=== PATIENT | male | born 1970 | race Caucasian/White ===

== ENCOUNTER 2017-10-06 13:08 | Observation (INO) | payer BC ==
[~2017-10-06] VITALS: Ht 190.5 cm; Wt 103.6 kg
[~2017-10-06 13:08] MED LIST: ATOR40TA69 PO; CEPH500T7 PO; CLOP75TA PO; DIA5 PO; HYDR-4309 PO; KET10 PO; LISI5TAB25 PO; METH-543 PO; METO25TA23 PO; PER PO; SIMV-54 PO; SPIR25TA78 PO; WARF2.5T11 PO; [UNRECOGNIZED DRUG - CODE] PO
--- NOTE | 2017-10-06 13:14 | ER Report ---
History and Physical Time Seen By MD: 13:30 (SOSA RAMSEY MD) HPI/ROS chief concern: vomiting, dehydration HPI: 47 y/o male presents with concern of dehydration related to "stomach flu". Reports onset of sinus and upper respiratory symptoms x one week, with onset of vomiting x4 days. Reports he has been unable to take medications, including coumadin, for two days due to vomiting. He has also fainted and fallen three times, hitting his head once. Denies vision changes, headache. Reports chronic diarrhea x3 years, believes related to his medications; denies any hematochezia , melena, or mucus. Review of Systems: General: Reports chills, sweats. Denies headache. HENT: Reports sinus pressure, bloody nasal discharge. Respiratory: Reports cough. Denies shortness of breath, dyspnea. CV: Denies chest pain, palpitations. GI: Reports nausea, vomiting, diarrhea. Denies abdominal pain, hematemesis, hematochezia, melena, mucus. Neuro: Reports intermittent lightheadedness. Denies vision/hearing changes. (LAKIA BOTELLO) Allergies: Coded Allergies: No Known Drug Allergies (Unverified , 03/31/15) Home Meds Active Scripts Enoxaparin Sodium (ENOXAPARIN SODIUM) 150 Mg/1 Ml Disp.syrin, 150 MG SQ HS, #3 1 Refill Prov:CHERYL LYLE MD 10/07/17 Reported Medications Warfarin Sodium (COUMADIN) 10 Mg Tablet, 10 MG PO tuesday, tuesday, tuesday10/06/17 Warfarin Sodium (WARFARIN SODIUM) 5 Mg Tablet, 7.5 MG PO, TAB tuesday, , tuesday, tuesday10/06/17 Trazodone Hcl (TRAZODONE HCL) 150 Mg Tablet, 150 MG PO QHS 10/06/17 Atorvastatin Calcium (LIPITOR) 40 Mg Tablet, 2 TAB PO QDAY, TAB 10/06/17 Spironolactone (SPIRONOLACTONE) 25 Mg Tablet, 25 MG PO QDAY 08/01/15 Metoprolol Succinate (METOPROLOL SUCCINATE) 25 Mg Tab.er.24h, 1 TAB PO QDAY, TAB 03/31/15 Lisinopril (LISINOPRIL) 5 Mg Tablet, 5 MG PO DAILY, TAB 03/31/15 Clopidogrel Bisulfate (CLOPIDOGREL) 75 Mg Tablet, 1 TAB PO QDAY, TAB 03/31/15 Discontinued Reported Medications Diazepam (VALIUM) 5 Mg Tablet, 5 MG PO PRN, #5 TAB 10/06/17 Warfarin Sodium (WARFARIN SODIUM) 5 Mg Tablet, 10 MG PO, TAB 10/06/17 Cefuroxime Axetil (CEFUROXIME) 500 Mg Tablet, 500 MG PO BID, #20 TAB 10/06/17 Warfarin Sodium (WARFARIN SODIUM) 2.5 Mg Tablet, 7.5 MG PO QDAY 03/31/15 Discontinued Scripts Promethazine/Phenyleph/Codeine (Promethazine Vc-Codeine Syrup) 6.25 Mg-5 Mg-10 Mg/5 Ml Syrup, 5 ML PO Q4-6H Y for cough, #120 ML 0 Refills Prov:SOSA RAMSEY MD 10/06/17 Amoxicillin/Pot Clav 875-125 Mg Tab (AUGMENTIN 875-125 TABLET) 1 Each Tablet, 1 TAB PO Q12H for 10 Days, #20 TAB 0 Refills Prov:SOSA RAMSEY MD 10/06/17 Ondansetron (ZOFRAN ODT) 4 Mg Tab.rapdis, 4 MG PO Q8H for Nausea, #20 TAB.RONI 0 Refills Prov:SOSA RAMSEY MD 10/06/17 Enoxaparin Sodium (LOVENOX) 100 Mg/1 Ml Disp.syrin, 100 MG SQ Q12H, #14 SYR 0 Refills Prov:SOSA RAMSEY MD 10/06/17 Diazepam (VALIUM) 5 Mg Tablet, 5 MG PO 2-3XD, #15 TAB Prov:GISELLE COE MD 11/24/16 Cephalexin 500 Mg Tab (KEFLEX 500 MG TAB) 500 Mg Tablet, 500 MG PO Q6H, #28 TAB 0 Refills TAKE ONE TABLET BY MOUTH EVERY SIX HOURS Prov:GISELLE COE MD 11/24/16 Hydrocodone Bit/Acetaminophen (NORCO 5-325 TABLET) 1 Each Tablet, 1 EACH PO Q4- 6H Y for BACK PAIN, #30 TAB Prov:GISELLE COE MD 11/24/16 Past Medical/Surgical History Hypertension, history of prior TX with stenting on Coumadin therapy (SOSA RAMSEY MD) Hx Smoking: No Smoking Status: Never Smoker Hx Substance Use Disorder: No Hx Alcohol Use: Yes (LAKIA BOTELLO) Constitutional Vital Sign - Last 24 Hours 10/06/17 10/06/17 10/06/17 10/06/17 13:18 13:30 14:00 14:30 Temp 97.4 Pulse 86 74 Resp 16 B/P (MAP) 114/90 114/88 (97) 118/79 (92) 127/74 (91) Pulse Ox 91 O2 Delivery Room Air 10/06/17 10/06/17 10/06/17 10/06/17 15:00 15:30 16:00 16:30 Pulse 78 B/P (MAP) 114/78 (90) 123/90 (101) 115/69 (84) 110/73 (85) Pulse Ox 83 Intake and Output 10/06/17 10/06/17 10/07/17 15:00 23:00 07:00 Intake Total 1000 ml Balance 1000 ml Physical Exam Physical Exam: General: Alert, oriented x3; answers questions appropriately. Ill-appearing. HENT: TMs pearly leonard with no erythema to ear canals. Posterior pharynx mildly erythematous, tonsils 1+ bilaterally with no exudates. No lymphadenopathy. Respiratory: Clear to auscultation bilaterally. Normal respiratory effort. CV: regular rate and rhythm, no peripheral edema. GI: Abdomen soft. Bowel sounds normoactive. Scattered tympany and dullness to percussion. Nontender to palpation all quadrants. Neuro: PERRLA After obtaining thorough HPI, ROS, and physical exam, the following differentials were considered but not limited to: TX, hypovolemic shock, dehydration, viral gastroenteritis, seasonal influenza. (LAKIA BOTELLO) Constitutional Vital Sign - Last 24 Hours 10/06/17 13:18 Temp 97.4 Pulse 86 Resp 16 B/P (MAP) 114/90 Pulse Ox 91 O2 Delivery Room Air (SOSA RAMSEY MD) Constitutional Vital Sign - Last 24 Hours 10/06/17 10/06/17 10/06/17 10/06/17 13:18 13:30 14:00 14:30 Temp 97.4 Pulse 86 74 Resp 16 B/P (MAP) 114/90 114/88 (97) 118/79 (92) 127/74 (91) Pulse Ox 91 O2 Delivery Room Air 10/06/17 15:00 B/P (MAP) 114/78 (90) (HUSSEIN,ORLY Hernandez DO) Medical Decision Making Data Points Result Diagram: 10/06/17 1321 10/06/17 1321 Laboratory Hematology Test 10/06/17 13:21 10/06/17 14:05 Red Blood Count 5.35 M/uL (4.00-5.60) Mean Corpuscular Volume 87.4 fL (80.0-96.0) Mean Corpuscular Hemoglobin 30.2 pg (26.0-33.0) Mean Corpuscular Hemoglobin Concent 34.6 g/dL (32.0-36.0) Red Cell Distribution Width 13.9 % (11.5-14.5) Mean Platelet Volume 8.3 fL (7.2-11.1) Neutrophils (%) (Auto) 61.9 % (39.4-72.5) Lymphocytes (%) (Auto) 24.0 % (17.6-49.6) Monocytes (%) (Auto) 9.6 % (4.1-12.4) Eosinophils (%) (Auto) 4.1 % (0.4-6.7) Basophils (%) (Auto) 0.4 % (0.3-1.4) Nucleated RBC Relative Count (auto) 0.0 /100WBC Neutrophils # (Auto) 4.3 K/uL (2.0-7.4) Lymphocytes # (Auto) 1.7 K/uL (1.3-3.6) Monocytes # (Auto) 0.7 K/uL (0.3-1.0) Eosinophils # (Auto) 0.3 K/uL (0.0-0.5) Basophils # (Auto) 0.0 K/uL (0.0-0.1) Nucleated RBC Absolute Count (auto) 0.00 K/uL Prothrombin Time 13.7 seconds (12.0-14.4) Prothromb Time International Ratio 1.05 Activated Partial Thromboplast Time 30 seconds (23-35) Sodium Level 138 mmol/L (137-145) Potassium Level 3.8 mmol/L (3.5-5.0) Chloride Level 100 mmol/L (98-107) Carbon Dioxide Level 24 mmol/L (22-30) Blood Urea Nitrogen 15 mg/dl (9-21) Creatinine 1.10 mg/dl (0.66-1.25) Glomerular Filtration Rate Calc > 60.0 Random Glucose 101 mg/dl (75-110) Calcium Level 9.0 mg/dl (8.4-10.2) Total Bilirubin 0.5 mg/dl (0.2-1.3) Aspartate Amino Transf (AST/SGOT) 65 U/L (0-35) Alanine Aminotransferase (ALT/SGPT) 87 U/L (0-56) Alkaline Phosphatase 58 U/L (0-126) Troponin I < 0.012 ng/ml B-Type Natriuretic Peptide 19 pg/ml (0-100) Total Protein 7.7 gm/dl (6.3-8.2) Albumin 4.2 g/dl (3.5-5.0) Influenza Virus Type A (PCR) Negative (NEGATIVE) Influenza Virus Type B (PCR) Positive (NEGATIVE) Chemistry Test 10/06/17 13:21 10/06/17 14:05 White Blood Count 7.0 k/uL (4.5-11.0) Red Blood Count 5.35 M/uL (4.00-5.60) Hemoglobin 16.2 g/dL (14.0-18.0) Hematocrit 46.8 % (42.0-52.0) Mean Corpuscular Volume 87.4 fL (80.0-96.0) Mean Corpuscular Hemoglobin 30.2 pg (26.0-33.0) Mean Corpuscular Hemoglobin Concent 34.6 g/dL (32.0-36.0) Red Cell Distribution Width 13.9 % (11.5-14.5) Platelet Count 240 K/uL (150-450) Mean Platelet Volume 8.3 fL (7.2-11.1) Neutrophils (%) (Auto) 61.9 % (39.4-72.5) Lymphocytes (%) (Auto) 24.0 % (17.6-49.6) Monocytes (%) (Auto) 9.6 % (4.1-12.4) Eosinophils (%) (Auto) 4.1 % (0.4-6.7) Basophils (%) (Auto) 0.4 % (0.3-1.4) Nucleated RBC Relative Count (auto) 0.0 /100WBC Neutrophils # (Auto) 4.3 K/uL (2.0-7.4) Lymphocytes # (Auto) 1.7 K/uL (1.3-3.6) Monocytes # (Auto) 0.7 K/uL (0.3-1.0) Eosinophils # (Auto) 0.3 K/uL (0.0-0.5) Basophils # (Auto) 0.0 K/uL (0.0-0.1) Nucleated RBC Absolute Count (auto) 0.00 K/uL Prothrombin Time 13.7 seconds (12.0-14.4) Prothromb Time International Ratio 1.05 Activated Partial Thromboplast Time 30 seconds (23-35) Glomerular Filtration Rate Calc > 60.0 Calcium Level 9.0 mg/dl (8.4-10.2) Total Bilirubin 0.5 mg/dl (0.2-1.3) Aspartate Amino Transf (AST/SGOT) 65 U/L (0-35) Alanine Aminotransferase (ALT/SGPT) 87 U/L (0-56) Alkaline Phosphatase 58 U/L (0-126) Troponin I < 0.012 ng/ml B-Type Natriuretic Peptide 19 pg/ml (0-100) Total Protein 7.7 gm/dl (6.3-8.2) Albumin 4.2 g/dl (3.5-5.0) Influenza Virus Type A (PCR) Negative (NEGATIVE) Influenza Virus Type B (PCR) Positive (NEGATIVE) Coagulation Test 10/06/17 13:21 Prothrombin Time 13.7 seconds Prothromb Time International Ratio 1.05 Activated Partial Thromboplast Time 30 seconds (LAKIA BOTELLOP) Laboratory Hematology Test 10/06/17 13:21 10/06/17 14:05 Red Blood Count 5.35 M/uL (4.00-5.60) Mean Corpuscular Volume 87.4 fL (80.0-96.0) Mean Corpuscular Hemoglobin 30.2 pg (26.0-33.0) Mean Corpuscular Hemoglobin Concent 34.6 g/dL (32.0-36.0) Red Cell Distribution Width 13.9 % (11.5-14.5) Mean Platelet Volume 8.3 fL (7.2-11.1) Neutrophils (%) (Auto) 61.9 % (39.4-72.5) Lymphocytes (%) (Auto) 24.0 % (17.6-49.6) Monocytes (%) (Auto) 9.6 % (4.1-12.4) Eosinophils (%) (Auto) 4.1 % (0.4-6.7) Basophils (%) (Auto) 0.4 % (0.3-1.4) Nucleated RBC Relative Count (auto) 0.0 /100WBC Neutrophils # (Auto) 4.3 K/uL (2.0-7.4) Lymphocytes # (Auto) 1.7 K/uL (1.3-3.6) Monocytes # (Auto) 0.7 K/uL (0.3-1.0) Eosinophils # (Auto) 0.3 K/uL (0.0-0.5) Basophils # (Auto) 0.0 K/uL (0.0-0.1) Nucleated RBC Absolute Count (auto) 0.00 K/uL Prothrombin Time 13.7 seconds (12.0-14.4) Prothromb Time International Ratio 1.05 Activated Partial Thromboplast Time 30 seconds (23-35) Sodium Level 138 mmol/L (137-145) Potassium Level 3.8 mmol/L (3.5-5.0) Chloride Level 100 mmol/L (98-107) Carbon Dioxide Level 24 mmol/L (22-30) Blood Urea Nitrogen 15 mg/dl (9-21) Creatinine 1.10 mg/dl (0.66-1.25) Glomerular Filtration Rate Calc > 60.0 Random Glucose 101 mg/dl (75-110) Calcium Level 9.0 mg/dl (8.4-10.2) Total Bilirubin 0.5 mg/dl (0.2-1.3) Aspartate Amino Transf (AST/SGOT) 65 U/L (0-35) Alanine Aminotransferase (ALT/SGPT) 87 U/L (0-56) Alkaline Phosphatase 58 U/L (0-126) Troponin I < 0.012 ng/ml B-Type Natriuretic Peptide 19 pg/ml (0-100) Total Protein 7.7 gm/dl (6.3-8.2) Albumin 4.2 g/dl (3.5-5.0) Influenza Virus Type A (PCR) Negative (NEGATIVE) Influenza Virus Type B (PCR) Positive (NEGATIVE) Chemistry Test 10/06/17 13:21 10/06/17 14:05 White Blood Count 7.0 k/uL (4.5-11.0) Red Blood Count 5.35 M/uL (4.00-5.60) Hemoglobin 16.2 g/dL (14.0-18.0) Hematocrit 46.8 % (42.0-52.0) Mean Corpuscular Volume 87.4 fL (80.0-96.0) Mean Corpuscular Hemoglobin 30.2 pg (26.0-33.0) Mean Corpuscular Hemoglobin Concent 34.6 g/dL (32.0-36.0) Red Cell Distribution Width 13.9 % (11.5-14.5) Platelet Count 240 K/uL (150-450) Mean Platelet Volume 8.3 fL (7.2-11.1) Neutrophils (%) (Auto) 61.9 % (39.4-72.5) Lymphocytes (%) (Auto) 24.0 % (17.6-49.6) Monocytes (%) (Auto) 9.6 % (4.1-12.4) Eosinophils (%) (Auto) 4.1 % (0.4-6.7) Basophils (%) (Auto) 0.4 % (0.3-1.4) Nucleated RBC Relative Count (auto) 0.0 /100WBC Neutrophils # (Auto) 4.3 K/uL (2.0-7.4) Lymphocytes # (Auto) 1.7 K/uL (1.3-3.6) Monocytes # (Auto) 0.7 K/uL (0.3-1.0) Eosinophils # (Auto) 0.3 K/uL (0.0-0.5) Basophils # (Auto) 0.0 K/uL (0.0-0.1) Nucleated RBC Absolute Count (auto) 0.00 K/uL Prothrombin Time 13.7 seconds (12.0-14.4) Prothromb Time International Ratio 1.05 Activated Partial Thromboplast Time 30 seconds (23-35) Glomerular Filtration Rate Calc > 60.0 Calcium Level 9.0 mg/dl (8.4-10.2) Total Bilirubin 0.5 mg/dl (0.2-1.3) Aspartate Amino Transf (AST/SGOT) 65 U/L (0-35) Alanine Aminotransferase (ALT/SGPT) 87 U/L (0-56) Alkaline Phosphatase 58 U/L (0-126) Troponin I < 0.012 ng/ml B-Type Natriuretic Peptide 19 pg/ml (0-100) Total Protein 7.7 gm/dl (6.3-8.2) Albumin 4.2 g/dl (3.5-5.0) Influenza Virus Type A (PCR) Negative (NEGATIVE) Influenza Virus Type B (PCR) Positive (NEGATIVE) Coagulation Test 10/06/17 13:21 Prothrombin Time 13.7 seconds Prothromb Time International Ratio 1.05 Activated Partial Thromboplast Time 30 seconds (SOSA RAMSEY MD) Laboratory Hematology Test 10/06/17 13:21 10/06/17 14:05 Red Blood Count 5.35 M/uL (4.00-5.60) Mean Corpuscular Volume 87.4 fL (80.0-96.0) Mean Corpuscular Hemoglobin 30.2 pg (26.0-33.0) Mean Corpuscular Hemoglobin Concent 34.6 g/dL (32.0-36.0) Red Cell Distribution Width 13.9 % (11.5-14.5) Mean Platelet Volume 8.3 fL (7.2-11.1) Neutrophils (%) (Auto) 61.9 % (39.4-72.5) Lymphocytes (%) (Auto) 24.0 % (17.6-49.6) Monocytes (%) (Auto) 9.6 % (4.1-12.4) Eosinophils (%) (Auto) 4.1 % (0.4-6.7) Basophils (%) (Auto) 0.4 % (0.3-1.4) Nucleated RBC Relative Count (auto) 0.0 /100WBC Neutrophils # (Auto) 4.3 K/uL (2.0-7.4) Lymphocytes # (Auto) 1.7 K/uL (1.3-3.6) Monocytes # (Auto) 0.7 K/uL (0.3-1.0) Eosinophils # (Auto) 0.3 K/uL (0.0-0.5) Basophils # (Auto) 0.0 K/uL (0.0-0.1) Nucleated RBC Absolute Count (auto) 0.00 K/uL Prothrombin Time 13.7 seconds (12.0-14.4) Prothromb Time International Ratio 1.05 Activated Partial Thromboplast Time 30 seconds (23-35) Sodium Level 138 mmol/L (137-145) Potassium Level 3.8 mmol/L (3.5-5.0) Chloride Level 100 mmol/L (98-107) Carbon Dioxide Level 24 mmol/L (22-30) Blood Urea Nitrogen 15 mg/dl (9-21) Creatinine 1.10 mg/dl (0.66-1.25) Glomerular Filtration Rate Calc > 60.0 Random Glucose 101 mg/dl (75-110) Calcium Level 9.0 mg/dl (8.4-10.2) Total Bilirubin 0.5 mg/dl (0.2-1.3) Aspartate Amino Transf (AST/SGOT) 65 U/L (0-35) Alanine Aminotransferase (ALT/SGPT) 87 U/L (0-56) Alkaline Phosphatase 58 U/L (0-126) Troponin I < 0.012 ng/ml B-Type Natriuretic Peptide 19 pg/ml (0-100) Total Protein 7.7 gm/dl (6.3-8.2) Albumin 4.2 g/dl (3.5-5.0) Influenza Virus Type A (PCR) Negative (NEGATIVE) Influenza Virus Type B (PCR) Positive (NEGATIVE) Chemistry Test 10/06/17 13:21 10/06/17 14:05 White Blood Count 7.0 k/uL (4.5-11.0) Red Blood Count 5.35 M/uL (4.00-5.60) Hemoglobin 16.2 g/dL (14.0-18.0) Hematocrit 46.8 % (42.0-52.0) Mean Corpuscular Volume 87.4 fL (80.0-96.0) Mean Corpuscular Hemoglobin 30.2 pg (26.0-33.0) Mean Corpuscular Hemoglobin Concent 34.6 g/dL (32.0-36.0) Red Cell Distribution Width 13.9 % (11.5-14.5) Platelet Count 240 K/uL (150-450) Mean Platelet Volume 8.3 fL (7.2-11.1) Neutrophils (%) (Auto) 61.9 % (39.4-72.5) Lymphocytes (%) (Auto) 24.0 % (17.6-49.6) Monocytes (%) (Auto) 9.6 % (4.1-12.4) Eosinophils (%) (Auto) 4.1 % (0.4-6.7) Basophils (%) (Auto) 0.4 % (0.3-1.4) Nucleated RBC Relative Count (auto) 0.0 /100WBC Neutrophils # (Auto) 4.3 K/uL (2.0-7.4) Lymphocytes # (Auto) 1.7 K/uL (1.3-3.6) Monocytes # (Auto) 0.7 K/uL (0.3-1.0) Eosinophils # (Auto) 0.3 K/uL (0.0-0.5) Basophils # (Auto) 0.0 K/uL (0.0-0.1) Nucleated RBC Absolute Count (auto) 0.00 K/uL Prothrombin Time 13.7 seconds (12.0-14.4) Prothromb Time International Ratio 1.05 Activated Partial Thromboplast Time 30 seconds (23-35) Glomerular Filtration Rate Calc > 60.0 Calcium Level 9.0 mg/dl (8.4-10.2) Total Bilirubin 0.5 mg/dl (0.2-1.3) Aspartate Amino Transf (AST/SGOT) 65 U/L (0-35) Alanine Aminotransferase (ALT/SGPT) 87 U/L (0-56) Alkaline Phosphatase 58 U/L (0-126) Troponin I < 0.012 ng/ml B-Type Natriuretic Peptide 19 pg/ml (0-100) Total Protein 7.7 gm/dl (6.3-8.2) Albumin 4.2 g/dl (3.5-5.0) Influenza Virus Type A (PCR) Negative (NEGATIVE) Influenza Virus Type B (PCR) Positive (NEGATIVE) Coagulation Test 10/06/17 13:21 Prothrombin Time 13.7 seconds Prothromb Time International Ratio 1.05 Activated Partial Thromboplast Time 30 seconds (LAURORA,ORLY V DO) EKG/Imaging EKG Interpretation EKG shows normal sinus rhythm with ventricular rate of 67 bpm. The patient has Q waves in the septal leads. EKG was compared to an EKG from March 2015 and it essentially is unchanged. Monitor Interpretation: Normal Sinus Rhythm (SOSA RAMSEY MD) ED Course/Re-evaluation ED Course 10/06/2017 2:05:02 pm patient seen along with Paty Botello; briefly this is a 47-year-old male with approximately 1 week of upper respiratory symptoms including sinus pressure and sinus headache along with cough and postnasal drip. He has a history of chronic diarrhea ever since his heart attack. This is felt to be medication related. He is developed intractable vomiting since Tuesday. No recent travel history no recent antibiotic use. Patient denies any chest pain or shortness of breath but does have a nonproductive cough. General/Constitutional: Patient is awake, alert, nontoxic and in no acute respiratory distress. Head: Normocephalic and atraumatic. Eyes: Conjunctival clear, Pupils are equal and reactive to light. Extraocular muscles are intact and symmetrical. Sclera are clear and anicteric. Ears:External canals are clear. Tympanic membranes are clear with normal landmarks and light reflex. She with tenderness to the frontal and maxillary sinuses bilaterally with percussion Nares: No rhinorrhea or bleeding. Turbinates are pink and moist. Oropharyngeal: Mucous membranes are moist. There is no pharyngeal erythema or exudate. There are no palatal petechiae. Uvula is midline and symmetrical. Neck: Supple, no adenopathy. Cardiovascular: Heart is regular rate and rhythm without audible murmurs, rubs or gallops. Pulmonary: Lungs are clear to auscultation bilaterally. There are no wheezes, rales, or rhonchi. Chest rise is symmetrical Abdomen: Soft, nontender, no guarding or peritoneal signs. Extremities: No gross deformities, No peripheral cyanosis. Able to move all 4 extremities. Neuro: Alert and oriented X3, Skin: No rashes, skin is warm dry and well perfused. 10/06/2017 3:24:11 pm patient with intractable vomiting will discuss case with the hospitalist. It did speak with Dr. Lyle who agreed to come and evaluate the patient for possible observation admission Re-evaluation 10/06/2017 3:10:[address] scan is positive for pain sinusitis. Plan will be treatment for 10 days of Augmentin patient positive for influenza B however is out of the window for Tamiflu treatment at this time. The patient is able to tolerate orals we'll sent home with Zoan will also send home on a week's worth of Lovenox shots and a prescription to have his INR redrawn on October 10. We will have him continue his Coumadin regime which is 10 mg Tuesday and Tuesday and 7.5 mg on all the other days. If he is unable to tolerate by mouth fluids we will discuss the case with the on-call hospitalist for possible admission. Decision to Disposition Date: Oct 07, 2017 Decision to Disposition Time: 17:00 (SOSA RAMSEY MD) ED Course 10/06/2017 4:36:51 pm Pt unable to go home due to vomited up his coumadin. hospitalist will admit. Decision to Disposition Date: Oct 06, 2017 Decision to Disposition Time: 16:36 (ORLY SAVAGE DO) Depart Departure Latest Vital Signs Vital Signs Date Time Temp Pulse Resp B/P (MAP) Pulse Ox O2 Delivery O2 Flow Rate FiO2 10/06/17 16:30 78 110/73 (85) 83 10/06/17 13:18 97.4 16 Room Air (LAKIA BOTELLO) Latest Vital Signs Vital Signs Date Time Temp Pulse Resp B/P (MAP) Pulse Ox O2 Delivery O2 Flow Rate FiO2 10/06/17 13:18 97.4 86 16 114/90 91 Room Air (SOSA RAMSEY MD) Latest Vital Signs Vital Signs Date Time Temp Pulse Resp B/P (MAP) Pulse Ox O2 Delivery O2 Flow Rate FiO2 10/06/17 15:00 114/78 (90) 10/06/17 14:00 74 10/06/17 13:18 97.4 16 91 Room Air (ORLY SAVAGE DO) Impression: Primary Impression: Sinusitis Additional Impressions: Influenza Vomiting Condition: Condition Unchanged Disposition: Admitted from ER Referrals: AGBRIELLE PHILLIPS (PCP) Follow-up on Tuesday to have your INR rechecked. New Scripts Enoxaparin Sodium (ENOXAPARIN SODIUM) 150 Mg/1 Ml Disp.syrin 150 MG SQ HS, #3 1 Refill Prov: CHERYL LYLE MD 10/07/17 Patient Instructions: Influenza (DC), Sinusitis (ED) Additional Instructions: Continue to take your Coumadin as prescribed; follow-up on Tuesday for a repeat INR test. Take your Lovenox injections, 100 mg every 12 hours, your were prescribed 7 days worth of this medication. You will need to have your INR rechecked on Tuesday see if you can stop taking the Lovenox when she would become therapeutic. Problem Qualifiers Primary Impression: Sinusitis Sinusitis location: pansinusitis Chronicity: subacute Qualified Codes: J01.40 - Acute pansinusitis, unspecified Additional Impressions: Vomiting Vomiting type: unspecified Vomiting Intractability: intractable Nausea presence: with nausea Qualified Codes: R11.2 - Nausea with vomiting, unspecified LAKIA BOTELLO Oct 06, 2017 13:14 SOSA RAMSEY MD Oct 06, 2017 13:58 ORLY SAVAGE DO Oct 06, 2017 16:37
[2017-10-06] MEDS ORDERED: ATOR40TA24 PO (13:21)
[2017-10-06] MEDS ORDERED: CEFU500T10 PO (13:22)
[2017-10-06] MEDS ORDERED: ONDANSETRON 4 MG/2 ML VIAL IVP ONE ×2 (13:35→15:30)
[2017-10-06] MEDS ORDERED: NS(*) 0.9% 1000 ML BAG 1,000 ML IV ONE ×2 (13:35→14:55)
[2017-10-06 13:49] LABS: PLATELET COUNT, AUTOMATED 240 K/uL (150-450)
--- NOTE | 2017-10-06 14:01 | EKG ---
FACILITY: [facility] PATIENT NAME: AZUL NAVARRETE : [id number] MR: [id number] V: [id number] EXAM DATE: ORDERING PHYSICIAN: SOSA RAMSEY TECHNOLOGIST: Johnny Sunshine Reason : Blood Pressure : / mmHG Vent. Rate : 067 BPM Atrial Rate : 067 BPM P-R Int : 184 ms QRS Dur : 100 ms QT Int : 394 ms P-R-T Axes : 037 041 035 degrees QTc Int : 416 ms Normal sinus rhythm Possible Left atrial enlargement Low voltage QRS Septal infarct (cited on or before 23-APR-2015) Abnormal ECG When compared with ECG of 23-APR-2015 10:33, Vent. rate has increased BY 26 BPM Nonspecific T wave abnormality now evident in Inferior leads T wave inversion no longer evident in Anterior leads Confirmed by CHERYL LYLE ([id number]) on 10/06/2017 5:58:58 PM Referred By: Confirmed By:CHERYL LYLE
[2017-10-06 14:12] LABS: INR 1.05
--- NOTE | 2017-10-06 14:24 | RADIOLOGY IMAGING REPORT ---
FACILITY: [facility] PATIENT NAME: Rangel Rosa : 1970 MR: [id number] V: [id number] EXAM DATE: ORDERING PHYSICIAN: SOSA RAMSEY TECHNOLOGIST: Location: [facility] [place] Patient: Rangel Rosa : 1970 Visit/Account:[id number] Date of Sevice: 10/06/2017 Exam type: CHEST PA AND LAT History: Chest Pain Comparison: April 23, 2015. Findings: The lungs are free of acute effusions, infiltrates or edema. There is no evidence of a pneumothorax or pneumomediastinum. The cardiac silhouette appears normal. The trachea is in midline. IMPRESSION: 1. No acute cardiopulmonary process is seen Report Dictated By: Pearl Hart MD at 10/06/2017 2:17 PM Report E-Signed By: Pearl Hart MD at 10/06/2017 2:20 PM WSN:[id number]
--- NOTE | 2017-10-06 14:30 | RADIOLOGY IMAGING REPORT ---
FACILITY: [facility] PATIENT NAME: Rangel Rosa : 1970 MR: [id number] V: [id number] EXAM DATE: [id number] ORDERING PHYSICIAN: SOSA RAMSEY TECHNOLOGIST: Location: [facility] [place] Patient: Rangel Rosa : 1970 Visit/Account:[id number] Date of Sevice: 10/06/2017 CT Head without contrast Indication: Fall. Sinus pressure. On Coumadin. Comparison: None available Technique: Axial CT images were obtained through the brain from the skull base to the vertex without administration of IV contrast. Reformatted coronal and sagittal images were also obtained. One of the following dose optimization techniques was utilized in the performance of this exam: autom ated exposure control; adjustment of the mA and/or kV according to the patient's size; or use of an i terative reconstruction technique. Specific details can be referenced in the facility's radiology CT exam operational policy. Findings: No evidence of mass, mass effect, or midline shift. No acute intracranial hemorrhage or acute territorial infarction. Moderate mucosal thickening in the visualized bilateral maxillary sinuses with mastoid air cells appe aring patent. There is also minimal mucosal thickening inferior frontal sinuses and the left sphenoi d sinuses as well as minimal patchy opacification ethmoid air cells. IMPRESSION: 1. No acute intracranial abnormality. 2. Maxillary, ethmoid, left sphenoid, and inferior frontal sinus disease with no air-fluid levels id entified on this exam. Report Dictated By: Jeremiah Forte MD at 10/06/2017 2:25 PM Report E-Signed By: Jeremiah Forte MD at 10/06/2017 2:27 PM WSN:[id number]
[2017-10-06] MEDS ORDERED: ENOXAPARIN 100 MG/ML SYR SC ONE (14:40)
[2017-10-06] MEDS ORDERED: MORPHINE 4 MG/ML SDV IVP ONE (14:55)
[2017-10-06] MEDS ORDERED: cefTRIAXone 1 GM VIAL IVP ONE (14:55)
[2017-10-06] MEDS ORDERED: WARFARIN SOD 10 MG TAB PO ONE (15:05)
[2017-10-06] MEDS ORDERED: PHEN118S56 PO (15:23)
[2017-10-06] MEDS ORDERED: AMOX-559 PO (15:23)
[2017-10-06] MEDS ORDERED: ENOX100D5 SQ (15:23)
[2017-10-06] MEDS ORDERED: ONDA4TAB PO (15:23)
[2017-10-06] MEDS ORDERED: KETOROLAC 15 MG/ML VIAL IVP ONE (15:30)
[2017-10-06] MEDS ORDERED: NS(*) 0.9% 1000 ML BAG 1,000 ML IV PRN (16:54)
[2017-10-06] MEDS ORDERED: traZODone HCL 50 MG TAB PO PRN (16:55)
[2017-10-06] MEDS ORDERED: PROMETHAZINE 25 MG/ML 1 ML AMP IVP PRN (16:55)
[2017-10-06] MEDS ORDERED: PANTOPRAZOLE SOD 40 MG IV VIAL IVP SCH (16:55)
--- NOTE | 2017-10-06 17:28 | History & Physical ---
History of Present Illness History of Present Illness 47yo male with a h/o CAD and cardiomyopathy who came to the ER for vomiting. Last week he developed a cough, fevers and chills. The fevers and chills have improved. He was started on Tessalon Perles and a cough syrup with Codeine about 4 days ago. He has had nausea and vomiting for the last 3 days. No hematemesis, coffee ground emesis, hematochezia or melena. He hasn't been able to keep much down. Yesterday, he was given Omnicef for concern of a sinus infection. Today, he had a near syncopal episode with getting up and walking and the vomiting seemed to be getting worse. In the ER, he was given Toradol, Morphine, Lovenox, Warfarin, Zofran x2, Ceftriaxone and IVF. 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 Home Meds Active Scripts Promethazine/Phenyleph/Codeine (Promethazine Vc-Codeine Syrup) 6.25 Mg-5 Mg-10 Mg/5 Ml Syrup, 5 ML PO Q4-6H Y for cough, #120 ML 0 Refills Prov:SOSA RAMSEY MD 10/06/17 Amoxicillin/Pot Clav 875-125 Mg Tab (AUGMENTIN 875-125 TABLET) 1 Each Tablet, 1 TAB PO Q12H for 10 Days, #20 TAB 0 Refills Prov:SOSA RAMSEY MD 10/06/17 Ondansetron (ZOFRAN ODT) 4 Mg Tab.rapdis, 4 MG PO Q8H for Nausea, #20 TAB.RONI 0 Refills Prov:SOSA RAMSEY MD 10/06/17 Enoxaparin Sodium (LOVENOX) 100 Mg/1 Ml Disp.syrin, 100 MG SQ Q12H, #14 SYR 0 Refills Prov:SOSA RAMSEY MD 10/06/17 Reported Medications Cefuroxime Axetil (CEFUROXIME) 500 Mg Tablet, 500 MG PO BID, #20 TAB 10/06/17 Atorvastatin Calcium (LIPITOR) 40 Mg Tablet, 2 TAB PO QDAY, TAB 10/06/17 Spironolactone (SPIRONOLACTONE) 25 Mg Tablet, 25 MG PO QDAY 1/8/16 Warfarin Sodium (WARFARIN SODIUM) 2.5 Mg Tablet, 7.5 MG PO QDAY 03/31/15 Metoprolol Succinate (METOPROLOL SUCCINATE) 25 Mg Tab.er.24h, 1 TAB PO QDAY, TAB 03/31/15 Lisinopril (LISINOPRIL) 5 Mg Tablet, 5 MG PO BID, TAB 03/31/15 Clopidogrel Bisulfate (CLOPIDOGREL) 75 Mg Tablet, 1 TAB PO QDAY, TAB 03/31/15 Discontinued Scripts Diazepam (VALIUM) 5 Mg Tablet, 5 MG PO 2-3XD, #15 TAB Prov:GISELLE COE MD 11/24/16 Cephalexin 500 Mg Tab (KEFLEX 500 MG TAB) 500 Mg Tablet, 500 MG PO Q6H, #28 TAB 0 Refills TAKE ONE TABLET BY MOUTH EVERY SIX HOURS Prov:GISELLE COE MD 11/24/16 Hydrocodone Bit/Acetaminophen (NORCO 5-325 TABLET) 1 Each Tablet, 1 EACH PO Q4- 6H Y for BACK PAIN, #30 TAB Prov:GISELLE COE MD 11/24/16 Allergies: Coded Allergies: No Known Drug Allergies (Unverified , 03/31/15) Other Social/Family Hx Owns an auto repair shop. Quit smoking a couple of years ago, but has a 30 pack year history of smoking. Occasional alcohol use. Hx Smoking: No Smoking Status: Never Smoker Hx Alcohol Use: Yes Hx Substance Use Disorder: No Social Drug Use: Never Review of Systems All Systems Reviewed/Normal: Yes, Except as Noted Exam Vital Signs Vital Signs Date Time Temp Pulse Resp B/P (MAP) Pulse Ox O2 Delivery O2 Flow Rate FiO2 10/06/17 15:00 114/78 (90) 10/06/17 14:00 74 10/06/17 13:18 97.4 16 91 Room Air General Appearance: Alert, Awake, No Acute Distress Neuro: No Gross deficits Eyes: PERRLA ENT: Moist Mucous Membranes Cardiovascular: Regular Rate and Rhythm Respiratory: Clear to Auscultation GI: Abd Soft and Non-Tender Extremities: No Edema Integumentary: No Jaundice, No Cyanosis Medical Decision Making Data Points Result Diagram: 10/06/17 1321 10/06/17 1321 Item Value Date Time Neutrophils (%) (Auto) 61.9 % 10/06/17 1321 Lymphocytes (%) (Auto) 24.0 % 10/06/17 1321 Monocytes (%) (Auto) 9.6 % 10/06/17 1321 Prothromb Time International Ratio 1.05 10/06/17 1321 Total Bilirubin 0.5 mg/dl 10/06/17 1321 Aspartate Amino Transf (AST/SGOT) 65 U/L H 10/06/17 1321 Alanine Aminotransferase (ALT/SGPT) 87 U/L H 10/06/17 1321 Alkaline Phosphatase 58 U/L 10/06/17 1321 Troponin I < 0.012 ng/ml 10/06/17 1321 B-Type Natriuretic Peptide 19 pg/ml 10/06/17 1321 Total Protein 7.7 gm/dl 10/06/17 1321 Albumin 4.2 g/dl 10/06/17 1321 Influenza Virus Type B (PCR) Positive 10/06/17 1405 Influenza Virus Type A (PCR) Negative 10/06/17 1405 EKG / Imaging Imaging Head CT - 1. No acute intracranial abnormality. 2. Maxillary, ethmoid, left sphenoid, and inferior frontal sinus disease with no air-fluid levels identified on this exam. CXR - 1. No acute cardiopulmonary process is seen Assessment and Plan Problems: (1) Vomiting Status: Acute Assessment & Plan: Secondary to Influenza B and post nasal drip. Will gently hydrate and treat symptomatically with Phenergan and Zofran. Protonix IV for gastritis. Recheck CBC and CMP in the morning. (2) Influenza Status: Acute Assessment & Plan: His symptoms started about a week ago. Will put in isolation, but not treat with Tamiflu. (3) Cardiomyopathy Status: Chronic Assessment & Plan: The patient reports that his heart "pushes out about a third " secondary to a bad heart attack. He is chronically on Toprol and spironolactone which will be continued with parameters. 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 He is subtherapeutic secondary to not being able to take warfarin. He received a dose of Lovenox in the ER, which will be continued. He did keep down a dose of warfarin. Will check daily INR and continue warfarin. (4) CAD (coronary artery disease) Status: Chronic Assessment & Plan: Continue Plavix, Toprol and Lipitor. (5) Abuse of nasal spray Status: Chronic Assessment & Plan: He was started on Omnicef yesterday for a sinusitis. CT today didn't show air fluid levels and his WBC is normal. Will let him use his own nasal spray and encourage him to quit. Copies to: [facility] GABRIELLE PHILLIPS Venous Thromboembolism Antithrombotics Is Pt On Any Antithrombotics?: Yes Exam Sepsis Risk: No Definite Risk Problem Qualifiers (1) Vomiting: Vomiting type: unspecified Vomiting Intractability: intractable Nausea presence: with nausea Qualified Codes: R11.2 - Nausea with vomiting, unspecified CHERYL LYLE MD Oct 06, 2017 17:28
[2017-10-06] MEDS: ACETAMINOPHEN(*)1000 MG/100 ML 100 ML IVPB PRN (18:53)
[2017-10-06] MEDS ORDERED: WARF5TAB23 PO ×2 (19:19)
[2017-10-06] MEDS ORDERED: TRAZ150T8 PO (19:19)
[2017-10-06] MEDS ORDERED: DIA5 PO (19:19)
[2017-10-06] MEDS ORDERED: WARF10TA28 PO (19:21)
[2017-10-06] MEDS ORDERED: ATORVASTATIN 40 MG TAB PO SCH (21:00)
[2017-10-06] MEDS ORDERED: CELECOXIB 200 MG CAP PO PRN (21:30)
[2017-10-06 21:48] VITALS: BP 125/79
[2017-10-07] MEDS: ACETAMINOPHEN(*)1000 MG/100 ML 100 ML IVPB PRN (02:17)
[2017-10-07 02:19] VITALS: BP 112/58
[2017-10-07] MEDS ORDERED: ENOXAPARIN 100 MG/ML SYR SC SCH (03:00)
[2017-10-07 05:55] LABS: PLATELET COUNT, AUTOMATED 187 K/uL (150-450)
[2017-10-07 06:07] LABS: INR 1.14
[2017-10-07 08:08] VITALS: BP 115/74
[2017-10-07] MEDS ORDERED: ACETAMINOPHEN 500 MG TAB PO PRN (08:15)
[2017-10-07] MEDS ORDERED: ENOX150D4 SQ (08:20)
--- NOTE | 2017-10-07 08:31 | Hospitalist Depart ---
Discharge Summary Reason for Hosp/Final Diag: (1) Vomiting Status: Resolved Hospital Course & Plan: Secondary to Influenza B and post nasal drip. He didn' t have anymore vomiting after admission. He was on Protonix IV for gastritis. He is tolerating oral intake and is safe to go home. (2) Influenza Status: Acute Hospital Course & Plan: His symptoms started about a week ago. Tamiflu won't benefit him and he is afebrile. (3) Cardiomyopathy Status: Chronic Hospital Course & Plan: The patient reports that his heart "pushes out about a third" secondary to a bad heart attack. He is chronically on Toprol and spironolactone. 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 He is subtherapeutic secondary to not being able to take warfarin. He received a dose of Lovenox in the ER, which will be continued daily at the 1.5mg/kg dosing. He reports giving himself the shots in the past and feels comfortable doing it. He will check daily INR with his device and stop the Lovenox when his INR is greater than 1.9. (4) CAD (coronary artery disease) Status: Chronic Hospital Course & Plan: Continue Plavix, Toprol and Lipitor. (5) Abuse of nasal spray Status: Chronic Hospital Course & Plan: He was started on Omnicef for a sinusitis. CT today didn't show air fluid levels and his WBC is normal. I encouraged him to stop the nasal spray decongestant and/or follow up with ENT. Departure Weight (Pounds): 228 Weight (Ounces): 7.0 Result Diagram: 10/07/1751910/07/17 05 Item Value Date Time White Blood Count 7.0 k/uL 10/06/17 1321 White Blood Count 5.5 k/uL 10/07/17 0520 Hemoglobin 14.0 g/dL 10/07/17 05 Hemoglobin 16.2 g/dL 10/06/17 1321 Platelet Count 187 K/uL 10/07/17 0520 Platelet Count 240 K/uL 10/06/17 1321 Neutrophils (%) (Auto) 21.5 % L 10/07/17 0520 Lymphocytes (%) (Auto) 58.0 % H 10/07/17 0520 Neutrophils (%) (Auto) 61.9 % 10/06/17 1321 Lymphocytes (%) (Auto) 24.0 % 10/06/17 1321 Prothromb Time International Ratio 1.05 10/06/17 1321 Prothromb Time International Ratio 1.14 10/07/17 0520 Blood Urea Nitrogen 15 mg/dl 10/06/17 1321 Creatinine 1.10 mg/dl 10/06/17 1321 Blood Urea Nitrogen 18 mg/dl 10/07/17 0520 Creatinine 1.00 mg/dl 10/07/17 0520 Total Bilirubin 0.5 mg/dl 10/06/17 1321 Aspartate Amino Transf (AST/SGOT) 65 U/L H 10/06/17 1321 Alanine Aminotransferase (ALT/SGPT) 87 U/L H 10/06/17 1321 Troponin I < 0.012 ng/ml 10/06/17 1321 B-Type Natriuretic Peptide 19 pg/ml 10/06/17 1321 Total Bilirubin 0.4 mg/dl 10/07/17 0520 Aspartate Amino Transf (AST/SGOT) 48 U/L H 10/07/17 0520 Alanine Aminotransferase (ALT/SGPT) 74 U/L H 10/07/17 0520 Alkaline Phosphatase 42 U/L 10/07/17 0520 Influenza Virus Type A (PCR) Negative 10/06/17 1405 Influenza Virus Type B (PCR) Positive 10/06/[address] - 1. No acute intracranial abnormality. 2. Maxillary, ethmoid, left sphenoid, and inferior frontal sinus disease with no air-fluid levels identified on this exam. CXR - 1. No acute cardiopulmonary process is seen EKG Vent. Rate : 067 BPM Atrial Rate : 067 BPM P-R Int : 184 ms QRS Dur : 100 ms QT Int : 394 ms P-R-T Axes : 037 041 035 degrees QTc Int : 416 ms Normal sinus rhythm Possible Left atrial enlargement Low voltage QRS Septal infarct (cited on or before 23-APR-2015) Abnormal ECG When compared with ECG of 23-APR-2015 10:33, Vent. rate has increased BY 26 BPM Nonspecific T wave abnormality now evident in Inferior leads T wave inversion no longer evident in Anterior leads Confirmed by CHERYL LYLE ([id number]) on 10/06/2017 5:58:58 PM Condition: Improved Discharge: Home Discharge Instructions Home Meds Active Scripts Ondansetron (ZOFRAN ODT) 4 Mg Tab.rapdis, 4 MG PO Q8H, #6 TAB.RONI Prov:CHERYL LYLE MD 10/07/17 Enoxaparin Sodium (ENOXAPARIN SODIUM) 150 Mg/1 Ml Disp.syrin, 150 MG SQ HS, #3 1 Refill Prov:CHERYL LYLE MD 10/07/17 Reported Medications Warfarin Sodium (COUMADIN) 10 Mg Tablet, 10 MG PO tuesday, tuesday, tuesday10/06/17 Warfarin Sodium (WARFARIN SODIUM) 5 Mg Tablet, 7.5 MG PO, TAB tuesday, , tuesday, tuesday10/06/17 Trazodone Hcl (TRAZODONE HCL) 150 Mg Tablet, 150 MG PO QHS 10/06/17 Atorvastatin Calcium (LIPITOR) 40 Mg Tablet, 2 TAB PO QDAY, TAB 10/06/17 Spironolactone (SPIRONOLACTONE) 25 Mg Tablet, 25 MG PO QDAY 08/01/15 Metoprolol Succinate (METOPROLOL SUCCINATE) 25 Mg Tab.er.24h, 1 TAB PO QDAY, TAB 03/31/15 Lisinopril (LISINOPRIL) 5 Mg Tablet, 5 MG PO DAILY, TAB 03/31/15 Clopidogrel Bisulfate (CLOPIDOGREL) 75 Mg Tablet, 1 TAB PO QDAY, TAB 03/31/15 Discontinued Reported Medications Diazepam (VALIUM) 5 Mg Tablet, 5 MG PO PRN, #5 TAB 10/06/17 Warfarin Sodium (WARFARIN SODIUM) 5 Mg Tablet, 10 MG PO, TAB 10/06/17 Cefuroxime Axetil (CEFUROXIME) 500 Mg Tablet, 500 MG PO BID, #20 TAB 10/06/17 Warfarin Sodium (WARFARIN SODIUM) 2.5 Mg Tablet, 7.5 MG PO QDAY 03/31/15 Discontinued Scripts Promethazine/Phenyleph/Codeine (Promethazine Vc-Codeine Syrup) 6.25 Mg-5 Mg-10 Mg/5 Ml Syrup, 5 ML PO Q4-6H Y for cough, #120 ML 0 Refills Prov:SOSA RAMSEY MD 10/06/17 Amoxicillin/Pot Clav 875-125 Mg Tab (AUGMENTIN 875-125 TABLET) 1 Each Tablet, 1 TAB PO Q12H for 10 Days, #20 TAB 0 Refills Prov:SOSA RAMSEY MD 10/06/17 Ondansetron (ZOFRAN ODT) 4 Mg Tab.rapdis, 4 MG PO Q8H for Nausea, #20 TAB.RONI 0 Refills Prov:SOSA RAMSEY MD 10/06/17 Enoxaparin Sodium (LOVENOX) 100 Mg/1 Ml Disp.syrin, 100 MG SQ Q12H, #14 SYR 0 Refills Prov:SOSA RAMSEY MD 10/06/17 Diazepam (VALIUM) 5 Mg Tablet, 5 MG PO 2-3XD, #15 TAB Prov:GISELLE COE MD 11/24/16 Cephalexin 500 Mg Tab (KEFLEX 500 MG TAB) 500 Mg Tablet, 500 MG PO Q6H, #28 TAB 0 Refills TAKE ONE TABLET BY MOUTH EVERY SIX HOURS Prov:GISELLE COE MD 11/24/16 Hydrocodone Bit/Acetaminophen (NORCO 5-325 TABLET) 1 Each Tablet, 1 EACH PO Q4- 6H Y for BACK PAIN, #30 TAB Prov:GISELLE COE MD 11/24/16 Diet: Regular Activity: As Tolerated Special Instructions: Take Lovenox at about [id number] daily. Check INR each morning. Stop Lovenox when INR>1.9. Copies to: [facility] GABRIELLE PHILLIPS Venous Thromboembolism Antithrombotics Is Pt On Any Antithrombotics?: Yes Problem Qualifiers (1) Vomiting: Vomiting type: unspecified Vomiting Intractability: intractable Nausea presence: with nausea Qualified Codes: R11.2 - Nausea with vomiting, unspecified CHERYL LYLE MD Oct 07, 2017 08:30
[2017-10-07] MEDS ORDERED: ONDA4TAB PO (08:38)
[2017-10-07] MEDS ORDERED: PANTOPRAZOLE SOD 40 MG TABEC PO SCH (09:00)
[2017-10-07] MEDS ORDERED: SPIRONOLACTONE 25 MG TAB PO SCH (09:00)
[2017-10-07] MEDS ORDERED: LISINOPRIL 5 MG TAB PO SCH (09:00)
[2017-10-07] MEDS ORDERED: METOPROLOL SUCC XL 25 MG TABCR PO SCH (09:00)
[2017-10-07] MEDS ORDERED: CLOPIDOGREL BISULFATE 75MG TAB PO SCH (09:00)
[2017-10-07] MEDS ORDERED: WARFARIN SOD 5 MG TAB PO SCH (13:00)
[2017-10-08] MEDS ORDERED: WARFARIN SOD 7.5 MG TAB PO SCH (13:00)
[2017-10-09] MEDS ORDERED: INFLUENZA VIRUS VAC 0.5 ML SYR IM ONLY ONE (09:00)
== END 2017-10-07 08:39 | disposition home or self-care (01) ==
LOC: ER 13:10 → MED 16:55 → INTOOBSV 16:55 → MED 16:55 → UNDOADMOB 16:55
PROVIDERS: ADMIT Internal Medicine; ATTEND Internal Medicine
DX: J11.1 Influenza due to unidentified influenza virus with other respiratory manifestations (principal); J01.40 Acute pansinusitis, unspecified; R11.2 Nausea with vomiting, unspecified; I25.10 Atherosclerotic heart disease of native coronary artery without angina pectoris; I42.9 Cardiomyopathy, unspecified; R07.89 Other chest pain; Z79.01 Long term (current) use of anticoagulants
CPT/HCPCS: 36415; 70450; 71046; 83880; 84484; 85025; 85610; 85730; 87502; 93005; 96361; 96372; 96374; 96375; 96376; 99285; C9113; G0378; J0131; J0696; J1650; J1885; J2270; J2405; J7030; 82040; 82247; 82310; 82374; 82435; 82565; 82947; 84075; 84132; 84155; 84295; 84450; 84460; 84520

== ENCOUNTER 2019-01-12 11:37 | Emergency (ER) | payer BC ==
[~2019-01-12 11:37] MED LIST changes: +AMOX-559 PO; +ASPI81TA94 PO; +ATOR40TA24 PO; +CEFU500T10 PO; +ENOX100D5 SQ; +ENOX150D4 SQ; +FLUT16SP19; -HYDR-4309 PO; +HYDR-653 PO; +ONDA4TAB PO; +PHEN118S56 PO; +PRED20TA6 PO; -SPIR25TA78 PO; +SPIR25TA80 PO; +TRAZ150T8 PO; +WARF10TA28 PO; +WARF5TAB23 PO
--- NOTE | 2019-01-12 11:42 | ER Report ---
History and Physical Time Seen By MD: 11:40 HPI/ROS CHIEF COMPLAINT: Abdominal pain HISTORY OF PRESENT ILLNESS: This is a 48-year-old male who presents to the emergency department for abdominal pain. Patient states that about 3 hours prior to arrival, he was sitting at his desk working suddenly developed right lower quadrant pain was very debilitating, and nausea and vomiting, became very concerned troponin himself into the emergency department for an evaluation. Upon arrival he states the pain is basically resolved. Distal states that over the last 3-4 months his bowel habits have changed stool color has changed, has severe and extreme bloating. Patient has had an appendectomy. He denies gallbladder disease. No recent ingestion of unusual foods. No fevers or chills. Denies chest pain or shortness of breath. No rashes. Denies dysuria, denies testicular pain. REVIEW OF SYSTEMS: Constitutional: No fever, no chills. Eyes: No discharge. ENT: No sore throat. Cardiovascular: No chest pain, no palpitations. Respiratory: No cough, no shortness of breath. Gastrointestinal: As above. Genitourinary: No hematuria. Musculoskeletal: No back pain. Skin: No rashes. Neurological: No headache. Allergies: Coded Allergies: No Known Drug Allergies (Unverified , 01/12/19) Home Meds Reported Medications Aspirin (ASPIRIN) 81 Mg Tab.chew, 81 MG PO QDAY, TAB.CHEW 12/13/18 Trazodone Hcl (TRAZODONE HCL) 150 Mg Tablet, 150 MG PO QHS 10/06/17 Atorvastatin Calcium (LIPITOR) 40 Mg Tablet, 2 TAB PO QDAY, TAB 10/06/17 Metoprolol Succinate (METOPROLOL SUCCINATE) 25 Mg Tab.er.24h, 1 TAB PO QDAY, TAB 03/31/15 Lisinopril (LISINOPRIL) 5 Mg Tablet, 5 MG PO DAILY, TAB 03/31/15 Discontinued Scripts Fluticasone Prop 50 Mcg Ns (FLONASE 50 MCG NS) 16 G[address] [place].susp, 2 SPRAYS NA QDAY for 30 Days, #1 BOT Prov:JALIL YOST JR, MD 12/12/18 Prednisone (PREDNISONE) 20 Mg Tablet, 20 MG PO QDAY for 7 Days, #7 TAB Prov:JALIL YOST JR, MD 12/12/18 Past Medical/Surgical History Patient has a past medical surgical history of myocardial infarction, coronary artery stent, hypertension, hypercholesterolemia, appendectomy, arthritis, carpal tunnel release, ulnar nerve repair, knee surgery, back surgery. Reviewed Nurses Notes: Yes Hx Smoking: Yes Smoking Status: Former Smoker Hx Substance Use Disorder: No Hx Alcohol Use: Yes (ONE BEER PER MONTH) Constitutional Vital Sign - Last 24 Hours 01/12/19 01/12/19 01/12/19 01/12/19 11:44 12:00 12:30 13:00 Temp 97.6 Pulse 54 40 42 39 Resp 20 B/P (MAP) 106/67 102/70 (81) 100/50 (67) 101/64 (76) Pulse Ox 92 91 95 94 O2 Delivery Room Air Physical Exam General Appearance: The patient is alert, has no immediate need for airway protection and no signs of toxicity. Eyes: Pupils equal and round no pallor or injection. ENT, Mouth: Mucous membranes are moist. Respiratory: There are no retractions, lungs are clear to auscultation. Cardiovascular: Very slow, Regular rate and rhythm. No murmurs, clicks or rubs. Gastrointestinal: Abdomen is soft and non tender, no masses, hypoactive bowel sounds, no abdominal bruits. Neurological: Alert and oriented 4. Moving all extremities. Following all commands. No focal neuro deficits. Skin: Warm and dry, no rashes. Musculoskeletal: Neck is supple non tender. Extremities are nontender, nonswollen and have full range of motion. DIFFERENTIAL DIAGNOSIS: After history and physical exam differential diagnosis was considered for abdominal pain including but not limited to appendicitis, cholecystitis, bowel obstruction, Crohn's disease, ulcerative colitis, gastritis and urinary tract infection. Medical Decision Making Data Points Result Diagram: 01/12/19 1145 01/12/19 1145 Laboratory Hematology Test 01/12/19 11:43 01/12/19 11:45 Urine Color Yellow Urine Clarity Clear Urine pH 7.0 pH (4.8-9.5) Urine Specific [place] 1.015 Urine Protein Negative mg/dL (NEGATIVE) Urine Glucose (UA) Negative mg/dL (NEGATIVE) Urine Ketones Negative mg/dL (NEGATIVE) Urine Blood Negative (NEGATIVE) Urine Nitrite Negative (NEGATIVE) Urine Bilirubin Negative (NEGATIVE) Urine Urobilinogen Negative mg/dL (0.2-1.9) Urine Leukocyte Esterase Negative (NEGATIVE) Urine RBC 0-2 /HPF (0-2/HPF) Urine WBC 0-2 /HPF (0-5/HPF) Urine Squamous Epithelial Cells Few /LPF (</=FEW) Urine Bacteria Negative /HPF (NONE-FEW) Urine Mucus None /HPF (NONE-FEW) Red Blood Count 4.95 M/uL (4.00-5.60) Mean Corpuscular Volume 89.9 fL (80.0-96.0) Mean Corpuscular Hemoglobin 30.1 pg (26.0-33.0) Mean Corpuscular Hemoglobin Concent 33.5 g/dL (32.0-36.0) Red Cell Distribution Width 13.9 % (11.5-14.5) Mean Platelet Volume 8.0 fL (7.2-11.1) Neutrophils (%) (Auto) 55.7 % (39.4-72.5) Lymphocytes (%) (Auto) 34.9 % (17.6-49.6) Monocytes (%) (Auto) 6.7 % (4.1-12.4) Eosinophils (%) (Auto) 1.9 % (0.4-6.7) Basophils (%) (Auto) 0.8 % (0.3-1.4) Nucleated RBC Relative Count (auto) 0.0 /100WBC Neutrophils # (Auto) 3.1 K/uL (2.0-7.4) Lymphocytes # (Auto) 2.0 K/uL (1.3-3.6) Monocytes # (Auto) 0.4 K/uL (0.3-1.0) Eosinophils # (Auto) 0.1 K/uL (0.0-0.5) Basophils # (Auto) 0.0 K/uL (0.0-0.1) Nucleated RBC Absolute Count (auto) 0.00 K/uL Sodium Level 141 mmol/L (137-145) Potassium Level 4.1 mmol/L (3.5-5.0) Chloride Level 101 mmol/L (98-107) Carbon Dioxide Level 28 mmol/L (22-30) Blood Urea Nitrogen 11 mg/dl (9-21) Creatinine 1.00 mg/dl (0.66-1.25) Glomerular Filtration Rate Calc > 60.0 Random Glucose 104 mg/dl (75-110) Calcium Level 9.2 mg/dl (8.4-10.2) Total Bilirubin 0.7 mg/dl (0.2-1.3) Aspartate Amino Transf (AST/SGOT) 35 U/L (0-35) Alanine Aminotransferase (ALT/SGPT) 47 U/L (0-56) Alkaline Phosphatase 54 U/L (0-126) Total Protein 7.4 g/dl (6.3-8.2) Albumin 4.4 g/dl (3.5-5.0) Lipase 88 U/L (23-300) Chemistry Test 01/12/19 11:43 01/12/19 11:45 Urine Color Yellow Urine Clarity Clear Urine pH 7.0 pH (4.8-9.5) Urine Specific [place] 1.015 Urine Protein Negative mg/dL (NEGATIVE) Urine Glucose (UA) Negative mg/dL (NEGATIVE) Urine Ketones Negative mg/dL (NEGATIVE) Urine Blood Negative (NEGATIVE) Urine Nitrite Negative (NEGATIVE) Urine Bilirubin Negative (NEGATIVE) Urine Urobilinogen Negative mg/dL (0.2-1.9) Urine Leukocyte Esterase Negative (NEGATIVE) Urine RBC 0-2 /HPF (0-2/HPF) Urine WBC 0-2 /HPF (0-5/HPF) Urine Squamous Epithelial Cells Few /LPF (</=FEW) Urine Bacteria Negative /HPF (NONE-FEW) Urine Mucus None /HPF (NONE-FEW) White Blood Count 5.7 k/uL (4.5-11.0) Red Blood Count 4.95 M/uL (4.00-5.60) Hemoglobin 14.9 g/dL (14.0-18.0) Hematocrit 44.5 % (42.0-52.0) Mean Corpuscular Volume 89.9 fL (80.0-96.0) Mean Corpuscular Hemoglobin 30.1 pg (26.0-33.0) Mean Corpuscular Hemoglobin Concent 33.5 g/dL (32.0-36.0) Red Cell Distribution Width 13.9 % (11.5-14.5) Platelet Count 310 K/uL (150-450) Mean Platelet Volume 8.0 fL (7.2-11.1) Neutrophils (%) (Auto) 55.7 % (39.4-72.5) Lymphocytes (%) (Auto) 34.9 % (17.6-49.6) Monocytes (%) (Auto) 6.7 % (4.1-12.4) Eosinophils (%) (Auto) 1.9 % (0.4-6.7) Basophils (%) (Auto) 0.8 % (0.3-1.4) Nucleated RBC Relative Count (auto) 0.0 /100WBC Neutrophils # (Auto) 3.1 K/uL (2.0-7.4) Lymphocytes # (Auto) 2.0 K/uL (1.3-3.6) Monocytes # (Auto) 0.4 K/uL (0.3-1.0) Eosinophils # (Auto) 0.1 K/uL (0.0-0.5) Basophils # (Auto) 0.0 K/uL (0.0-0.1) Nucleated RBC Absolute Count (auto) 0.00 K/uL Glomerular Filtration Rate Calc > 60.0 Calcium Level 9.2 mg/dl (8.4-10.2) Total Bilirubin 0.7 mg/dl (0.2-1.3) Aspartate Amino Transf (AST/SGOT) 35 U/L (0-35) Alanine Aminotransferase (ALT/SGPT) 47 U/L (0-56) Alkaline Phosphatase 54 U/L (0-126) Total Protein 7.4 g/dl (6.3-8.2) Albumin 4.4 g/dl (3.5-5.0) Lipase 88 U/L (23-300) Urinalysis Test 01/12/19 11:43 Urine Color Yellow Urine Clarity Clear Urine pH 7.0 pH (4.8-9.5) Urine Specific [place] 1.015 Urine Protein Negative mg/dL (NEGATIVE) Urine Glucose (UA) Negative mg/dL (NEGATIVE) Urine Ketones Negative mg/dL (NEGATIVE) Urine Blood Negative (NEGATIVE) Urine Nitrite Negative (NEGATIVE) Urine Bilirubin Negative (NEGATIVE) Urine Urobilinogen Negative mg/dL (0.2-1.9) Urine Leukocyte Esterase Negative (NEGATIVE) Urine RBC 0-2 /HPF (0-2/HPF) Urine WBC 0-2 /HPF (0-5/HPF) Urine Squamous Epithelial Cells Few /LPF (</=FEW) Urine Bacteria Negative /HPF (NONE-FEW) Urine Mucus None /HPF (NONE-FEW) EKG/Imaging Imaging PATIENT NAME: Rangel Rosa : 1970 MR: [id number] V: [id number] EXAM DATE: ORDERING PHYSICIAN: STAN CONNORS TECHNOLOGIST: Location: [facility] - [place] Patient: Rangel Rosa : 1970 Visit/Account:[id number] Date of Sevice: 01/12/2019 CT ABDOMEN PELVIS W/ CON HISTORY: Abdominal pain TECHNIQUE: Axial images were obtained through the abdomen and pelvis with intravenous contrast . One of the following dose optimization techniques was utilized in the performance of this exam: automated exposure control; adjustment of the mA and/or kv according to patient size; or use of iterative reconstruction technique. Specific details can be referenced in the facility's radiology CT exam operational policy. CONTRAST: 75 mL of Isovue-370 COMPARISON: None. FINDINGS: Visualized lung bases: Negative. Hepatobiliary: Negative. Spleen: Negative. Adrenals: Negative. Pancreas: Negative. Kidneys/ureters/bladder: Negative. Bowel/peritoneum/mesentery: No bowel obstruction, free air or ascites. No acute inflammatory change surrounding the colon. Postoperative changes from appendectomy. Vessels: Negative. Lymph nodes: Negative. Pelvic genitourinary: Negative. Bones/body wall: Mild-moderate degenerative disc disease at L4-L5.. Other findings: None significant IMPRESSION: 1. No acute inflammatory process within the abdomen or pelvis. Report Dictated By: Andrea Bob MD at 01/12/2019 1:19 PM Report E-Signed By: Andrea Bob MD at 01/12/2019 1:22 PM WSN:TIM ED Course/Re-evaluation Clinical Indication for ER IV: Hydration, IV Access ED Course The patient was admitted to room. A history and physical obtained. Differential diagnoses were considered. An IV was started. A CBC, CMP were obtained. A 1 L normal saline bolus was given. Laboratory studies unremarkable: Negative UA. CT of the abdomen and pelvis negative for any acute pathology, I did review the results with the patient. Given the abrupt onset of his symptoms with acute nausea and vomiting and slowly easing of pain several hours later, a kidney stone is possible however there was no stone seen on the CT. I did review this with the patient. Given the bloating and general GI symptoms the patient has been having over the last 3-4 months, I did recommend following up with Dr. Valdez or Dr. Riddle for a discussion about colonoscopies. Patient expressed understanding, was agreeable with plan of care and discharged home. Decision to Disposition Date: Jan 12, 2019 Decision to Disposition Time: 13:32 Depart Departure Latest Vital Signs Vital Signs Date Time Temp Pulse Resp B/P (MAP) Pulse Ox O2 Delivery O2 Flow Rate FiO2 01/12/19 13:00 39 101/64 (76) 94 01/12/19 11:44 97.6 20 Room Air Impression: Primary Impression: Abdominal pain Condition: Improved Disposition: HOME OR SELF-CARE Referrals: YESICA RIDDLE JOHN A MD Patient Instructions: Abdominal Pain (ED) Additional Instructions: Your lab studies and CT scan did not show anything concerning. With the abrupt onset of abdominal pain, nausea and vomiting today, it is possible that you had a kidney stone, and passed it relatively quickly. With the GI irritation, bloating you have been experiencing over the last several months, I would recommend follow up with Dr. Robert or Venkatesh for a discussion about a colonoscopy. Try keeping a food journal, this may help pinpoint more foods that could be contributing to your symptoms. Drink plenty of water. Get plenty of rest. Return to the ED for any other concerns or worsening symptoms. Also, I would follow up with Cardiology for your very low heart rate, you may need a medications adjustment. Problem Qualifiers Primary Impression: Abdominal pain Abdominal location: right lower quadrant Qualified Codes: R10.31 - Right lower quadrant pain STAN CONNORS ELECTRONIC FUNDS TRANSFER COORDINATOR- Jan 12, 2019 11:42
[2019-01-12] MEDS ORDERED: NS(*) 0.9% 1000 ML BAG 1,000 ML IV ONE (12:01)
[2019-01-12 12:20] LABS: PLATELET COUNT, AUTOMATED 310 K/uL (150-450)
[2019-01-12] MEDS ORDERED: IOPAMIDOL 76% 100 ML INFUS BTL 100 ML ONE (12:41)
[2019-01-12 13:00] VITALS: BP 101/64
--- NOTE | 2019-01-12 13:27 | RADIOLOGY IMAGING REPORT ---
FACILITY: [facility] PATIENT NAME: Rangel Rosa : 1970 MR: [id number] V: [id number] EXAM DATE: ORDERING PHYSICIAN: STAN CONNORS TECHNOLOGIST: Location: [facility] Patient: Rangel Rosa : 1970 Visit/Account:[id number] Date of Sevice: 01/12/2019 CT ABDOMEN PELVIS W/ CON HISTORY: Abdominal pain TECHNIQUE: Axial images were obtained through the abdomen and pelvis with intravenous contrast . One of the following dose optimization techniques was utilized in the performance of this exam: automate d exposure control; adjustment of the mA and/or kv according to patient size; or use of iterative rec onstruction technique. Specific details can be referenced in the facility's radiology CT exam operati onal policy. CONTRAST: 75 mL of Isovue-370 COMPARISON: None. FINDINGS: Visualized lung bases: Negative. Hepatobiliary: Negative. Spleen: Negative. Adrenals: Negative. Pancreas: Negative. Kidneys/ureters/bladder: Negative. Bowel/peritoneum/mesentery: No bowel obstruction, free air or ascites. No acute inflammatory change surrounding the colon. Postoperative changes from appendectomy. Vessels: Negative. Lymph nodes: Negative. Pelvic genitourinary: Negative. Bones/body wall: Mild-moderate degenerative disc disease at L4-L5.. Other findings: None significant IMPRESSION: 1. No acute inflammatory process within the abdomen or pelvis. Report Dictated By: Andrae Bob MD at 01/12/2019 1:19 PM Report E-Signed By: Andrea Bob MD at 01/12/2019 1:22 PM WSN:TIM
== END 2019-01-12 13:55 | disposition home or self-care (01) ==
LOC: ER 11:49
DX: R10.31 Right lower quadrant pain (principal)
CPT/HCPCS: 74177; 81001; 83690; 85025; 96360; 99284; J7030; Q9967; 82040; 82247; 82310; 82374; 82435; 82565; 82947; 84075; 84132; 84155; 84295; 84450; 84460; 84520